=== PATIENT | male | born 1980 | race Caucasian/White ===

== ENCOUNTER 2019-12-17 21:07 | Emergency (ER) | payer SELFPAY ==
[~2019-12-17] VITALS: Ht 172.7 cm; Wt 63.5 kg
--- NOTE | 2019-12-17 21:14 | NUR ---
CALLED PT IN [place]. NO ONE RESPONDED. WILL FOLLOW UP
--- NOTE | 2019-12-17 21:38 | NUR ---
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 PT DENIES CHEST PAIN, PALPITATIONS, SOB, NAUSEA, VOMITTING. PT AAOX4. RESPIRATIONS EVEN AND UNLABORED. SKIN WARM AND INTACT. VITAL SIGNS STABLE. AMBULATORY WITH STEADY GAIT. NO ACUTE DISTRESS NOTED AT THIS TIME. WILL CONTINUE TO MONITOR. WAITING MD JACOME
--- NOTE | 2019-12-17 21:40 | NUR ---
BENITO REID AT BEDSIDE FOR EVALUATION
--- NOTE | 2019-12-17 21:57 | NUR ---
CRACKERS AND JUICE PROVIDED TO PT PER REQUEST
--- NOTE | 2019-12-17 22:28 | NUR ---
Patient discharged to home in stable condition. Written and verbal after care instructions given. Patient verbalizes understanding of instruction.Pt ambulatory with a steady gait
[2019-12-17 22:29] VITALS: BP 118/79
== END 2019-12-17 22:29 | disposition home or self-care (01) ==
LOC: ER 21:07
DX: R55 Syncope and collapse (principal); F14.90 Cocaine use, unspecified, uncomplicated; R42 Dizziness and giddiness; Z60.2 Problems related to living alone
CPT/HCPCS: 82962-TC